=== PATIENT | female | born 1945 | race Asian ===

== ENCOUNTER 2019-06-16 23:08 | Emergency (ER) | payer OTHER ==
[~2019-06-16] VITALS: Ht 167.6 cm; Wt 90.7 kg
[2019-06-17 00:29] LABS: PLATELET COUNT 201 K/uL (152-353)
[2019-06-17 01:39] VITALS: BP 152/84; TEMP 98.3
== END 2019-06-17 01:41 | disposition home or self-care (01) ==
LOC: ED 23:08
PROVIDERS: Emergency Medicine
DX: K59.09 Other constipation (principal)
CPT/HCPCS: 36415; 80053; 85027; 96360; 96375; 99284; J2270; J2405

== ENCOUNTER 2021-03-25 09:45 | Outpatient (CLI) | payer OTHER | END 2021-03-25 19:06 | disposition home or self-care (01) | LOC: CT 09:45 | PROVIDERS: ATTEND Internal Medicine | DX: R20.2 Paresthesia of skin (principal); I73.9 Peripheral vascular disease, unspecified | CPT/HCPCS: 36415; 82565; 84520 ==

== ENCOUNTER 2021-11-09 15:44 | Outpatient (CLI) | payer OTHER | END 2021-11-09 19:03 | disposition home or self-care (01) | LOC: US 15:44 | PROVIDERS: ATTEND Nurse Practitioner Family | DX: M79.662 Pain in left lower leg (principal) ==

== ENCOUNTER 2022-02-03 13:45 | Outpatient (CLI) | payer OTHER | END 2022-02-03 21:00 | disposition home or self-care (01) | LOC: US 13:45 | PROVIDERS: ATTEND Nurse Practitioner Family | DX: G25.81 Restless legs syndrome (principal) ==

== ENCOUNTER 2022-03-23 10:07 | Outpatient (CLI) | payer OTHER | END 2022-03-23 20:00 | disposition home or self-care (01) | LOC: RAD 10:07 | PROVIDERS: ATTEND Nurse Practitioner Primary Care | DX: M25.561 Pain in right knee (principal) ==

== ENCOUNTER 2022-03-30 09:52 | Outpatient (CLI) | payer OTHER | END 2022-03-30 19:15 | disposition home or self-care (01) | LOC: MRI 09:52 → EDBD 10:00 → MRI 10:00 | PROVIDERS: ATTEND Family Medicine | DX: B02.29 Other postherpetic nervous system involvement (principal); Z13.820 Encounter for screening for osteoporosis; N95.8 Other specified menopausal and perimenopausal disorders | CPT/HCPCS: 36415; 82565; 84520; A9576 ==

== ENCOUNTER 2022-06-08 14:50 | Outpatient (CLI) | payer OTHER | END 2022-06-08 19:57 | disposition home or self-care (01) | LOC: RAD 14:50 | PROVIDERS: ATTEND Nurse Practitioner Primary Care | DX: M25.552 Pain in left hip (principal) ==

== ENCOUNTER 2022-06-29 11:37 | Outpatient (CLI) | payer OTHER | END 2022-06-29 20:53 | disposition home or self-care (01) | LOC: RAD 11:37 | PROVIDERS: ATTEND Nurse Practitioner Family | DX: E55.9 Vitamin D deficiency, unspecified (principal); E56.8 Deficiency of other vitamins; M06.4 Inflammatory polyarthropathy ==